=== PATIENT | male | born 1970 | race African-American/Black ===

== ENCOUNTER 2016-08-21 22:35 | Emergency (ER) | payer BC ==
--- NOTE | ~2016-08-21 | CT4 ---
[facility] A Service of [facility] / [facility] RADIOLOGY TEXT RESULTS PATIENT: PAN KU SR LOCATION: CFTX : 70 UNIT #: [id number] AGE: [address]: Sidra Boudreaux APRN SEX: M ORDER DR: [id number] [facility] [address] [place], [place] [address] [id number] MR#: [id number] Acc #: [id number] NAME: PAN KU SR : 1970 SEX: M STUDY DATE/TIME: 08/21/2016 23:25 UNIT: CFTX ROOM: STUDY DESCRIPTION: CT Abd and Pelv Wo Cont Attending Physician: Sidra Boudreaux A.P.R.N. Ordering Physician: Sidra Boudreaux A.P.R.N. Primary Care Physician: Primary Care Physician No MEDICAL IMAGING REPORT This report is preliminary unless electronic signature is present EXAM CT abdomen and pelvis without contrast Date: 08/21/2016 HISTORY 46-year-old male with right-side abdominal pain, blood in urine for [address] abdomen without contrast 09/07/2009. This CT exam was performed with one or more of the following radiation dose reduction techniques: automatic exposure control, adjustment of mA and/or kV according to patient size, and iterative reconstruction. PROCEDURE 3 mm noncontrast axial images through the abdomen and pelvis. Enteric contrast was not administered. Sagittal and coronal reformatted images were obtained. Abdomen findings: Lung bases are clear. The liver, spleen, pancreas, adrenals are normal. Gallbladder is contracted. There is mild right hydronephrosis and hydroureter secondary to 3 mm obstructing stone in the distal third of the right ureter. Multiple small nonobstructing left intrarenal calculi are present. Beam-hardening artifact from bilateral thoracolumbar fusion rods obscure several of the images. There is thoracolumbar dextroscoliosis. Limited evaluation of bowel due to lack of enteric contrast in the bowel otherwise appears unremarkable. The appendix appears normal. [facility] A Service of [facility] RADIOLOGY TEXT RESULTS PATIENT: PAN KU SR LOCATION: CFTX : 70 UNIT #: [id number] AGE: [address]: Sidra Boudreaux APRN SEX: M ORDER DR: Pelvis findings: Urinary bladder is decompressed. Prostate does not appear enlarged. Rectum is within normal limits. IMPRESSION 1. 3 mm stone in the distal third of the right ureter with mild right hydronephrosis and hydroureter. 2. Small multiple nonobstructing left intrarenal calculi. 3. The appendix is normal. 4. Thoracolumbar dextroscoliosis with bilateral fusion drsis stabilization. Dictated by... Tea James M.D. THIS IS AN ELECTRONICALLY VERIFIED REPORT Tea James M.D. at 08/23/2016 10:02 PM Lachelle TD: 08/22/2016 06:08 JOB #: [id number] MEDICAL IMAGING REPORT Page 1 of 1 COPY
[2016-08-21 22:26] LABS: URINE SOURCE CLEAN CATCH
[2016-08-21 22:31] LABS: URINE APPEARANCE CLOUDY; URINE BLOOD 3+ (NEG); URINE COLOR ORANGE; URINE GLUCOSE NEG (NEG); URINE KETONE NEG (NEG); URINE LEUKOCYTE ESTERASE 1+ (NEG); URINE NITRATE NEG (NEG); URINE PH 5.5 (5-8); URINE PROTEIN 1+ (NEG); URINE SPECIFIC GRAVITY 1.034 (1.003-1.035)
[2016-08-21 22:32] LABS: BASOPHIL% 0.4 % (0-2.5); EOSINOPHIL# 0.1 X10e3 (0-0.7); EOSINOPHIL% 1.5 % (0.0-7.0); HEMATOCRIT 41.8 % (38.0-50.0); HEMOGLOBIN 13.7 gm/dL (13.0-16.0); LYMPHOCYTE# 2.6 X10e3 (1.0-3.5); LYMPHOCYTE% 38.4 % (17.0-45.0); MEAN CELL VOLUME 88.4 FL (83-96); MEAN CORPUSCULAR HEMOGLOBIN 29.1 PG (28-34); MEAN CORPUSCULAR HGB CONC 32.9 g/dL (30-36); MEAN PLATELET VOLUME 8.2 FL (6.5-11.5); MONOCYTE# 0.6 X10e3 (0-1.0); MONOCYTE% 8.2 % (3.0-12.0); NEUTROPHIL# 3.5 X10e3 (1.5-7.1); NEUTROPHIL% 51.5 % (40-75); PLATELET COUNT 257 X10e3 (140-420); RED BLOOD COUNT 4.73 X10e (3.90-5.60); RED CELL DISTRIBUTION WIDTH 13.3 % (11.0-15.5); WHITE BLOOD COUNT 6.8 X10e3 (4.0-10.5)
[2016-08-21 22:33] LABS: URBCS1 AUWI INNUM /[HPF] (0-2); URINE BACTERIA AUWI NEG (NEGATIVE); URINE SQUAMOUS EPITHELIAL CELL NONE SEEN /[HPF]
[2016-08-21 22:34] LABS: DIFF IND NO
[~2016-08-21 22:35] MED LIST: CIPRO250 MG PO; FLAGYL250 M1 PO; LORTAB 5/500 TA1 TA1 PO; LOTRISONE CREAM45 GM TOP; NAPROXEN PO; VICODIN PO
[2016-08-21 22:37] LABS: CULTURE INDICATED? NO; URINE BILIRUBIN NEG (NEG)
[2016-08-21 22:59] LABS: ALBUMIN SERUM 4.2 g/dL (3.5-5.0); ALKALINE PHOSPHATASE 68 U/L (32-92); ALT (SGPT) 36 U/L (10-40); AMYLASE 35 U/L (0-46); AST (SGOT) 32 U/L (10-42); BILIRUBIN,TOTAL 0.6 mg/dL (0.2-2.0); BLOOD UREA NITROGEN 18 mg/dL (9-23); CALCIUM SERUM 8.9 mg/dL (8.4-10.2); CARBON DIOXIDE 22 mmol/L (22-31); CHLORIDE 106 mmol/L (100-111); CREATININE SERUM 1.2 mg/dL (0.6-1.4); GLOM FILT RATE Estimated 83.6 mL/min (>60); GLUCOSE FASTING 111 mg/dL (70-110); LIPASE 45 U/L (22-51); POTASSIUM 3.8 mmol/L (3.5-5.1); SODIUM 137 mmol/L (135-145)
[2016-08-21 23:02] LABS: BILIRUBIN, DIRECT <0.1 mg/dL (0.0-0.2); BILIRUBIN,INDIRECT 0.5 mg/dL (0.0-0.9)
== END 2016-08-22 00:30 | disposition home or self-care (01) ==
LOC: CFTX 22:35
PROVIDERS: Nurse Practitioner
DX: N13.2 Hydronephrosis with renal and ureteral calculous obstruction (principal); F41.9 Anxiety disorder, unspecified; Z88.8 Allergy status to other drugs, medicaments and biological substances
CPT/HCPCS: 36415; 74176; 80048; 80076; 81003; 82150; 83690; 85025; 96361; 96374; 99284; J1885